=== PATIENT | female | born 1985 | race Caucasian/White ===

== ENCOUNTER 2016-08-03 11:08 | Inpatient (IN) | payer OTHER ==
--- NOTE | 2016-08-03 11:43 | ED ---
General Adult HPI - General Chief complaint: Back Pain/Injury Stated complaint: back pain-12 weeks Time Seen by Provider: 08/03/16 11:36 Source: patient, RN notes reviewed, old records reviewed Mode of arrival: ambulatory Limitations: no limitations - History of Present Illness Initial comments: This is a 30-year-old female here for evaluation. Patient is here for evaluation nausea vomiting. Patient is well 14 weeks , . Sensation is having lower back pain feels like prior kidney infections. No trauma. Patient does have a positive history of drug abuse, positive history of smoking. States pain started 2 days ago no fevers, denies recent drug abuse - Related Data Home Medications Medication Instructions Recorded Confirmed Acetaminophen Tab [Tylenol] 1,000 mg PO Q6HR PRN 06/30/16 08/03/16 Chr-Dlab-Dvpfj Acid 1 cap PO HS 08/03/16 08/03/16 [-U Capsule] Previous Rx's Medication Instructions Recorded Cephalexin [Keflex] 500 mg PO Q8HR #42 cap 08/03/16 Allergies Allergy/AdvReac Type Severity Reaction Status Date / Time amoxicillin [Amoxicillin] Allergy Rash/Hives Verified 08/03/16 13:04 Review of Systems ROS Statement: Those systems with pertinent positive or pertinent negative responses have been documented in the HPI. ROS Other: All systems not noted in ROS Statement are negative. Past Medical History Past Medical History: No Reported History Additional Past Medical History / Comment(s): Herion/Fentynal Overdose on 2015 History of Any Multi-Drug Resistant Organisms: None Reported Past Surgical History: Section Additional Past Surgical History / Comment(s): abd surgery removing a fatty tumor left upper quadrant of the abdomen Past Anesthesia/Blood Transfusion Reactions: No Reported Reaction Past Psychological History: Anxiety Smoking Status: Current every day smoker Past Alcohol Use History: Occasional Additional Past Alcohol Use History / Comment(s): Patient states that she drinks three beers monthly. Past Drug Use History: Cocaine, Heroin, IV Drug Use, Marijuana, Opiates, Prescription Drug Abuse Additional Drug Use History / Comment(s): Cocaine-- last use years ago per Pt. Herion-- IV use 2 grams daily, last use 01/29/16. MJ-- Smokes once every two weeks - Past Family History Mother Family Medical History: GERD/Reflux Father Additional Family Medical History / Comment(s): Drug abuse- herion General Exam Limitations: no limitations General appearance: alert, in no apparent distress, anxious Head exam: Present: atraumatic, normocephalic, normal inspection Eye exam: Present: normal appearance, PERRL, EOMI. Absent: scleral icterus, conjunctival injection, periorbital swelling ENT exam: Present: normal exam, mucous membranes moist Neck exam: Present: normal inspection. Absent: tenderness, meningismus, lymphadenopathy Respiratory exam: Present: normal lung sounds bilaterally. Absent: respiratory distress, wheezes, rales, rhonchi, stridor Cardiovascular Exam: Present: regular rate, normal rhythm, normal heart sounds. Absent: systolic murmur, diastolic murmur, rubs, gallop, clicks GI/Abdominal exam: Present: soft, normal bowel sounds. Absent: distended, tenderness, guarding, rebound, rigid Extremities exam: Present: normal inspection, full ROM, normal capillary refill. Absent: tenderness, pedal edema, joint swelling, calf tenderness Back exam: Present: normal inspection Neurological exam: Present: alert, oriented X3, CN II-XII intact Psychiatric exam: Present: normal affect, normal mood Skin exam: Present: warm, dry, intact, normal color. Absent: rash Course Vital Signs 08/03/16 08/03/16 11:20 12:20 Temperature 98.1 F 99.8 F H Pulse Rate 71 Respiratory 20 Rate Blood Pressure 124/71 O2 Sat by Pulse 96 Oximetry - Reevaluation(s) Reevaluation #1: 08/03/16 13:30 Recent very difficult IV start secondary to drug abuse EKG Findings - EKG Comments: EKG Findings:: EKG shows sinus tachycardia rate 109, SC 124, QRS 78, QTC 4:30 Medical Decision Making - Medical Decision Making [id number] here for evaluation of infection right flank pain. Positive UTI positive pyelonephritis, patient will be admitted for IV antibiotics secondary to . IV fluid resuscitation, urine cultures - Lab Data Result diagrams: 08/03/16 13:38 08/03/16 13:38 Lab Results 08/03/16 08/03/16 08/03/16 Range/Units 11:32 13:38 13:38 WBC 13.2 H (3.8-10.6) k/uL RBC 3.66 L (3.80-5.40) m/uL Hgb 11.2 L (11.4-16.0) gm/dL Hct 33.1 L (34.0-46.0) % MCV 90.7 (80.0-100.0) fL MCH 30.7 (25.0-35.0) pg MCHC 33.8 (31.0-37.0) g/dL RDW 12.4 (11.5-15.5) % Plt Count 242 (150-450) k/uL Neutrophils % 94 % Lymphocytes % 3 % Monocytes % 2 % Eosinophils % 1 % Basophils % 0 % Neutrophils # 12.4 H (1.3-7.7) k/uL Lymphocytes # 0.4 L (1.0-4.8) k/uL Monocytes # 0.3 (0-1.0) k/uL Eosinophils # 0.1 (0-0.7) k/uL Basophils # 0.0 (0-0.2) k/uL Sodium 135 L (137-145) mmol/L Potassium 3.6 (3.5-5.1) mmol/L Chloride 105 (98-107) mmol/L Carbon Dioxide 19 L (22-30) mmol/L Anion Gap 11 mmol/L BUN 5 L (7-17) mg/dL Creatinine 0.53 (0.52-1.04) mg/dL Est GFR (MDRD) Af Amer >60 (>60 ml/min/1.73 sqM) Est GFR (MDRD) Non-Af >60 (>60 ml/min/1.73 sqM) Glucose 134 H (74-99) mg/dL Calcium 8.6 (8.4-10.2) mg/dL Phosphorus 2.3 L (2.5-4.5) mg/dL Magnesium 1.6 (1.6-2.3) mg/dL Total Bilirubin 1.3 (0.2-1.3) mg/dL AST 22 (14-36) U/L ALT 30 (9-52) U/L Alkaline Phosphatase 48 (38-126) U/L Total Protein 6.1 L (6.3-8.2) g/dL Albumin 3.5 (3.5-5.0) g/dL Urine Color Yellow Urine Appearance Cloudy H (Clear) Urine pH 6.0 (5.0-8.0) Ur Specific [place] 1.013 (1.001-1.035) Urine Protein 1+ H (Negative) Urine Glucose (UA) Negative (Negative) Urine Ketones Negative (Negative) Urine Blood Small H (Negative) Urine Nitrate Positive H (Negative) Urine Bilirubin Negative (Negative) Urine Urobilinogen <2.0 (<2.0) mg/dL Ur Leukocyte Esterase Large H (Negative) Urine RBC 14 H (0-5) /hpf Urine WBC >182 H (0-5) /hpf Ur Squamous Epith Cells 7 H (0-4) /hpf Urine Mucus Rare H (None) /hpf Urine Opiates Screen Detected H (NotDetected) Ur Oxycodone Screen Not Detected (NotDetected) Urine Methadone Screen Not Detected (NotDetected) Ur Propoxyphene Screen Not Detected (NotDetected) Ur Barbiturates Screen Not Detected (NotDetected) U Tricyclic Antidepress Not Detected (NotDetected) Ur Phencyclidine Scrn Not Detected (NotDetected) Ur Amphetamines Screen Not Detected (NotDetected) U Methamphetamines Scrn Not Detected (NotDetected) U Benzodiazepines Scrn Not Detected (NotDetected) Urine Cocaine Screen Not Detected (NotDetected) U Marijuana (THC) Screen Not Detected (NotDetected) Disposition Clinical Impression: Pyelonephritis affecting Disposition: ADMITTED IP TO THIS HOSP Condition: Fair Prescriptions: Cephalexin [Keflex] 500 mg PO Q8HR #42 cap Referrals: Chavo Marc MD [Primary Care Provider] - 1-2 days
[2016-08-03] MEDS ORDERED: ONDANSETRON 4 MG/2 ML VIAL IVP STA ×2 (11:51→12:40)
[2016-08-03] MEDS ORDERED: SODIUM CHLORIDE 0.9% 500 ML IV STA ×2 (11:51→12:40)
[2016-08-03] MEDS ORDERED: ACETAMINOPHEN IV (For NPO) 1,000 MG in EMPTY BAG 1 BAG IVPB STA ×2 (11:51→13:56)
[2016-08-03] MEDS ORDERED: SODIUM CHLORIDE 0.9% 1,000 ML IV STA ×4 (11:51→12:40)
[2016-08-03] MEDS ORDERED: diphenhydrAMINE 50 MG/ML 1 ML VIAL IVP STA ×2 (11:52→12:40)
[2016-08-03] MEDS ORDERED: PYRIDOXINE 100 MG/ML 1 ML VIAL IVP STA ×2 (11:52→12:40)
[2016-08-03 12:21] LABS: Appearance,Urine Cloudy (Clear); Bilirubin,Urine Negative (Negative); Glucose,Urine (UA) Negative (Negative); Ketones,Urine Negative (Negative); Leukocyte Esterase,Urine Large (Negative); Mucus,Urine Rare /hpf; Nitrite,Urine Positive (Negative); Particle Count 21768; Protein,Urine 1+ (Negative); RBC,Urine 14 /hpf (0-5); Specific Gravity,Urine 1.013 (1.001-1.035); Squamous Epithelial Cell,Urine 7 /hpf (0-4); UA Billing (MACRO vs. MICRO) MICRO; Urobilinogen,Urine <2.0 mg/dL (<2.0); WBC,Urine >182 /hpf (0-5)
[2016-08-03] MEDS ORDERED: diphenhydrAMINE 50 MG CAP PO STA (12:32)
[2016-08-03] MEDS ORDERED: cefTRIAXone 250 MG VIAL IM STA (12:32)
[2016-08-03] MEDS ORDERED: PYRIDOXINE 50 MG TAB PO STA (12:32)
[2016-08-03] MEDS ORDERED: ONDANSETRON ODT 4 MG TAB PO STA (12:32)
[2016-08-03] MEDS ORDERED: PANTOPRAZOLE 40 MG/10 ML VIAL IVP STA (12:40)
[2016-08-03] MEDS ORDERED: cefTRIAXone 2,000 MG in SODIUM CHLORIDE 0.9% 100 ML IVPB STA (12:50)
[2016-08-03 13:52] LABS: Basophils % (A) 0 %; CHCM 35.4; Eosinophils # (A) 0.1 k/uL (0-0.7); Eosinophils % (A) 1 %; HCT 33.1 % (34.0-46.0); HDW 2.47; HGB 11.2 gm/dL (11.4-16.0); Luc # (Auto) 0.03; Luc % (Auto) 0; Lymphocytes # (A) 0.4 k/uL (1.0-4.8); Lymphocytes % (A) 3 %; MCH 30.7 pg (25.0-35.0); MCHC 33.8 g/dL (31.0-37.0); MCV 90.7 fL (80.0-100.0); Mean Platelet Volume 7.3; Monocytes # (A) 0.3 k/uL (0-1.0); Monocytes % (A) 2 %; Neutrophils # (A) 12.4 k/uL (1.3-7.7); Neutrophils % (A) 94 %; RBC 3.66 m/uL (3.80-5.40); RDW 12.4 % (11.5-15.5); WBC 13.2 k/uL (3.8-10.6); WBC (Perox) 13.97
[2016-08-03 14:02] LABS: ALT 30 U/L (9-52); AST 22 U/L (14-36); Alkaline Phosphatase 48 U/L (38-126); Anion Gap 11 mmol/L; Blood Urea Nitrogen 5 mg/dL (7-17); Calcium 8.6 mg/dL (8.4-10.2); Carbon Dioxide 19 mmol/L (22-30); Chloride 105 mmol/L (98-107); Glucose 134 mg/dL (74-99); Magnesium 1.6 mg/dL (1.6-2.3); Non-African American GFR(MDRD) >60 (>60 ml/min/1.73 sqM); Phosphorous 2.3 mg/dL (2.5-4.5); Potassium 3.6 mmol/L (3.5-5.1); Sodium 135 mmol/L (137-145); Total Bilirubin 1.3 mg/dL (0.2-1.3); Total Protein 6.1 g/dL (6.3-8.2)
[2016-08-03 14:14] LABS: Creatine Kinase 54 U/L (30-135)
[2016-08-03 14:23] LABS: Creatine Kinase MB <0.2 ng/mL (0.0-2.4)
[2016-08-03] MEDS ORDERED: IBUPROFEN 600 MG TAB PO PRN (16:39)
[2016-08-03] MEDS: ONDANSETRON 4 MG/2 ML VIAL IVP PRN (16:59)
[2016-08-03] MEDS: ACETAMINOPHEN IV (For NPO) 1,000 MG in EMPTY BAG 1 BAG IVPB PRN (21:00)
[2016-08-03] MEDS: PRENATAL VIT-IRON-FOLIC ACID 1 EACH CAP PO SCH (21:15)
[2016-08-03] MEDS: diphenhydrAMINE 50 MG/ML 1 ML VIAL IVP PRN ×2 (21:34→23:40)
[2016-08-04] MEDS: ONDANSETRON 4 MG/2 ML VIAL IVP PRN ×3 (03:48→17:42)
[2016-08-04] MEDS: ACETAMINOPHEN IV (For NPO) 1,000 MG in EMPTY BAG 1 BAG IVPB PRN ×2 (03:49→08:59)
--- NOTE | 2016-08-04 08:36 | US ---
EXAMINATION TYPE: US abd limited kidneys/bladder DATE OF EXAM: 08/04/2016 8:17 AM COMPARISON: NONE CLINICAL HISTORY: right flank pain . EXAM MEASUREMENTS: Liver Length: 13.7 cm Gallbladder Wall: 0.2 cm CBD: 0.5 cm Right Kidney: 12.4 x 5.2 x 5.6 cm Left Kidney: 11.3 x 5.8 x 6.2 cm Findings: * patient Pancreas: portions visualized wnl, tail partially obscured by bowel gas Liver: wnl Gallbladder: wnl CBD: wnl Right Kidney: patient has bilateral tiny echogenic foci, unsure as to whether these are stones, they don't shadow no evidence for hydronephrosis or renal mass. Left Kidney: patient has bilateral tiny echogenic foci, unsure as to whether these are stones, they don't shadow . No evidence of hydronephrosis. No renal mass. Bladder: wnl IMPRESSION: Nonshadowing echogenic foci bilaterally may reflect nonobstructing nephrolithiasis. Corre late for possible medullary sponge kidney.
--- NOTE | 2016-08-04 08:55 | HP ---
DATE OF ADMISSION: 08/03/2016 Christine Hernandez is a 30-year-old female who is 14 weeks . She had pain on in her back on the right side and previously had kidney infection when she was 19 or 20 years old. She had some chills but no clear discrete fever. When she came to the ER she was found to be febrile as well. She subsequently was admitted for further evaluation and management. PAST MEDICAL HISTORY: Positive for an heroin and fentanyl overdose in January 2016, history of abdominal surgery with a fatty tumor removed from her left upper quadrant, history of previous which was normal. History of cocaine use in the remote past, history of IV heroin use, last use 01/29/2016, history of smoking about a pack every 2 weeks. FAMILY HISTORY: Positive for gastroesophageal reflux disease in her mother. Father has a history of heroin abuse. Medications prior to admission were: 1. vitamin. 2. Acetaminophen. 3. Keflex. On physical examination, blood pressure is 98/49, respiratory rate 16, pulse rate of 95, temperature 99.7 with a T-max of 100.6. HEENT reveals pupils are equal. No jugular venous distention. Chest is clear. Cardiovascular S1 and S2. Soft except for right flank tenderness. There is no pedal edema. PATIENT IS ALLERGIC TO AMOXICILLIN. Labs reveal a white count of 13.2, hemoglobin of 11.2. Sodium 135, potassium 3.6, chloride 105, bicarb 19, BUN 5, creatinine 0.53. UA showed large leukocyte esterase with greater than 182 WBCs, nitrite positive, blood positive, urine protein positive. Urine opiate screen was positive. IMPRESSION: 1. Acute pyelonephritis on the right. 2. . 3. Opiate abuse. 4. Hyponatremia. 5. Metabolic acidosis. At this point in time, would keep the patient in the hospital, start her on Rocephin. Have ID further evaluate the patient, hydrate her aggressively with intravenous fluids, check urine cultures and blood cultures as well. Depending on how she does, we shall make further changes to her care.
[2016-08-04] MEDS: cefTRIAXone 2,000 MG in SODIUM CHLORIDE 0.9% 100 ML IVPB SCH (11:31)
[2016-08-04 12:32] VITALS: BMI 26.1
--- NOTE | 2016-08-04 13:42 | CONS ---
DATE OF CONSULTATION: 08/03/2016 REASON FOR CONSULTATION: Pyelonephritis in a patient with . HISTORY OF PRESENT ILLNESS: The patient is a 30-year-old female who is currently 14 weeks presenting to the hospital with chief complaints of nausea and vomiting. The patient's symptoms started yesterday and have intractable nausea and vomiting. The patient has been complaining of pain in her right flank area which is still 5 to 6 out of 10 and no radiation. The patient did have some burning or frequency of urine but no hematuria. The patient subsequently presented to the ER with these symptoms, the patient did spike a fever to 100.6 while down in the ER and did have an elevated white count. Because of amoxicillin allergy with a rash was started on Rocephin. I was asked to see the patient for further recommendations regarding antibiotic therapy. REVIEW OF SYSTEMS: CONSTITUTIONAL: Positive for weakness and a fever. EYES: No complaint. ENT: No complaint. RESPIRATORY: No complaint. CARDIOVASCULAR: No complaint. GENITOURINARY: As per HPI. GASTROINTESTINAL: No complaint. MUSCULOSKELETAL: No complaint. INTEGUMENTARY: No complaint. PSYCHOLOGIC: No complaint. ENDOCRINE: No complaint. NEUROLOGIC: No complaint. Past medical history significant for anxiety, urinary tract infection and history of heroin overdose. PAST SURGICAL HISTORY: . SOCIAL HISTORY: The patient is a current every day smoker and she drinks 3 beers a month. Did have history of heroin and cocaine and marijuana use. FAMILY HISTORY: Mother with history of reflux, father with history of drug use. ALLERGIES: AMOXICILLIN WITH A RASH. No history of anaphylaxis. Medications currently include the patient is currently on: 1. Tylenol. 2. Rocephin. 3. Benadryl. 4. vitamins. 5. Zofran. On examination, blood pressure is 107/55 with a pulse of 104, temperature 99, T-max is 100.6. She is 98% on room air. General description is a young female lying in bed in no distress. No tachypnea or accessory muscles of respiration use. HEENT examination shows no pallor or scleral icterus. Oral mucous membrane dry. NECK: Trachea central, no thyromegaly. LUNGS: Unlabored breathing. Clear to auscultation anteriorly. No wheeze or crackles. HEART: S1, S2 with regular rate and rhythm. ABDOMEN: Soft. She has mild right flank tenderness. No guarding, no rigidity. EXTREMITIES: No edema of feet. SKIN EXAMINATION: No rash or mass palpable. NEUROLOGICAL: The patient is awake and alert. Mood and affect normal. LABS: Hemoglobin is 11.2, white count 13.52 with a BUN of 5, creatinine 0.53. Urine has been positive. Urine drug screen positive for opiates. Urine cultures obtained, currently pending. Blood culture obtained, currently pending. DIAGNOSTIC IMPRESSION AND PLAN: 1. Patient with sepsis in a patient who did have fever of 100.6. She did have an elevated white count of 13.6 and tachycardia meeting criteria for Systemic inflammatory response syndrome like sepsis. Source is likely right-sided pyelonephritis in a patient who is currently 14 weeks . 2. Patient who did have AMOXICILLIN ALLERGIES do limit the number of antibiotics that can be safely used. PLAN: 1. Rocephin 2 gm IV piggyback to continue. 2. Obtain ultrasound of kidneys. 3. Aggressive IV fluid. 4. Follow up on the clinical condition and cultures to further adjust the medication if needed. Thank you for this consultation. We will follow this patient along with you. JES
[2016-08-04] MEDS: diphenhydrAMINE 50 MG/ML 1 ML VIAL IVP PRN ×2 (14:19→21:12)
[2016-08-04] MEDS: ACETAMINOPHEN IV (For NPO) 1,000 MG in EMPTY BAG 1 BAG IVPB SCH ×2 (14:47→20:04)
--- NOTE | 2016-08-04 15:41 | P.PN ---
Subjective 30-year-old female being seen. Patient continues to report a nausea sensation. Patient additionally reports having lower back pain. Patients being followed by infectious disease patient is 14 weeks does have a positive history of drug abuse the drug screen was positive for opiates patient remains afebrile Objective - Vital Signs Vital signs: Vital Signs Temp 98.2 F 08/04/16 15:30 Pulse 97 08/04/16 15:30 Resp 16 08/04/16 15:30 BP 95/50 08/04/16 15:30 Pulse Ox 100 08/04/16 15:30 - Exam Physical exam 30-year-old female resting in bed continues to report feeling nauseated no active emesis poor oral intake Lungs essentially clear on room air sats 100% no cough noted Heart S1-S2 audible and regular no murmur Abdomen soft nontender Extremities no edema noted - Labs CBC & Chem 7: 08/03/16 13:38 08/03/16 13:38 Assessment and Plan Plan: Impression Present on admission fever elevated white count tachycardic meet SIRS criteria sepsis suspect due to right side polynephritis Positive drug screen for opiates 14 week History of polysubstance abuse IV heroin and cocaine use last January 2016 Present on admission hyponatremia Acute polynephritis on the right Plan Await [employer] consult Continue with recommendations by infectious disease Increase IV fluid 125 an hour DVT and GI prophylaxis Further recommendations pending The above dictated assessment and findings were discussed with dr lopez . Impression and the plan of care have been dictated as directed. Sherita Tsang nurse practitioner acting as a scribe for dr lopez
[2016-08-04 17:13] LABS: Basophils # (A) 0.1 k/uL (0-0.2); Basophils % (A) 0 %; CH 32.1; CHCM 34.8; Eosinophils % (A) 0 %; HCT 30.4 % (34.0-46.0); HDW 2.49; HGB 10.2 gm/dL (11.4-16.0); Luc # (Auto) 0.08; Luc % (Auto) 1; Lymphocytes % (A) 9 %; MCH 31.1 pg (25.0-35.0); MCHC 33.6 g/dL (31.0-37.0); MCV 92.6 fL (80.0-100.0); Mean Platelet Volume 7.6; Monocytes # (A) 0.5 k/uL (0-1.0); Monocytes % (A) 5 %; Neutrophils # (A) 9.5 k/uL (1.3-7.7); Neutrophils % (A) 85 %; RBC 3.28 m/uL (3.80-5.40); RDW 12.4 % (11.5-15.5); WBC 11.2 k/uL (3.8-10.6); WBC (Perox) 11.01
[2016-08-04] MEDS: SODIUM CHLORIDE 0.9% 1,000 ML IV SCH (17:44)
[2016-08-04 18:11] LABS: Hepatitis B Surface Ag Index 0.05
[2016-08-04] MEDS: PRENATAL VIT-IRON-FOLIC ACID 1 EACH CAP PO SCH (20:04)
[2016-08-04] MEDS: PANTOPRAZOLE 40 MG/10 ML VIAL IVP SCH (20:04)
--- NOTE | 2016-08-04 21:49 | PN ---
DATE OF SERVICE: 08/04/2016 REASON FOR FOLLOWUP: Right-sided pyelonephritis. INTERVAL HISTORY: The patient is afebrile. She did have an episode of vomiting this morning. The patient denies having any significant chest pain. No cough. Still has some pain in the right flank area, though urinary symptoms have slightly improved. On examination, blood pressure is 95/50 with a pulse of 97, temperature 98.2. She is 100% on room air. General description is a young female lying in bed in no distress. RESPIRATORY SYSTEM: Unlabored breathing. Clear to auscultation anteriorly. HEART: S1, S2. Regular rate and rhythm. ABDOMEN: Soft. No tenderness. LABS: Urine with Gram-negative bacilli. The patient did have an ultrasound of the kidneys and bladder with concern about non-shadowing echogenic foci bilaterally that may reflect non-obstructing nephrolithiasis. DIAGNOSTIC IMPRESSION AND PLAN: Patient with right-sided pyelonephritis in a patient who is 14 weeks' , likely a Gram-negative pathogen. The patient currently is responding to Rocephin. That will be continued. Waiting for the urine culture to finalize to determine her discharge antibiotics. Continue supportive care.
[2016-08-05] MEDS: ACETAMINOPHEN IV (For NPO) 1,000 MG in EMPTY BAG 1 BAG IVPB SCH ×2 (00:48→06:38)
[2016-08-05] MEDS: SODIUM CHLORIDE 0.9% 1,000 ML IV SCH ×5 (00:48→20:53)
[2016-08-05 07:53] LABS: ALT 63 U/L (9-52); AST 25 U/L (14-36); Alkaline Phosphatase 69 U/L (38-126); Anion Gap 10 mmol/L; Blood Urea Nitrogen 3 mg/dL (7-17); Calcium 7.9 mg/dL (8.4-10.2); Carbon Dioxide 16 mmol/L (22-30); Chloride 115 mmol/L (98-107); Glucose 87 mg/dL (74-99); Non-African American GFR(MDRD) >60 (>60 ml/min/1.73 sqM); Potassium 3.4 mmol/L (3.5-5.1); Sodium 141 mmol/L (137-145); Total Bilirubin 0.5 mg/dL (0.2-1.3); Total Protein 5.2 g/dL (6.3-8.2)
--- NOTE | 2016-08-05 08:44 | P.OBCN ---
History of Present Illness Consult date: 08/05/16 Reason for consult: early problem Chief complaint: Right-sided flank pain, chills, fever. History of present illness: This is a 30-year-old white female 2 para 1001 LMP unknown EDC unknown with a positive test. Patient presented to the emergency room with right flank pain, temp of 99.9 and chills. Urinalysis revealed large esterase, increased WBCs, the preliminary diagnosis of right pyelonephritis was made. Patient was admitted and Rocephin was started. She was found to be and therefore a OB consult was requested. Patient has an appointment already set with the [facility] on 08/12/2016 and plans on care and delivery through that system. She denies vaginal bleeding. She states menses are very irregular, please see below. This morning she is feeling well, tolerating regular food, states that the right flank pain has resolved. Past medical history is significant for pyelonephritis age 20. Social history patient is single, she has smoked tobacco since age 19 one half pack per day. She has a heroin addiction, last used in May 2016. She was hospitalized several times last year at this institution for same. She has history of marijuana use as well. She is currently unemployed and lives in [place] with her mother. Past surgical history is significant for section per Dr. Hackett for failure to progress in 2007. Family history patient states is noncontributory. Current medications vitamins daily. ALLERGIES amoxicillin to which reports hives. Family this is a pleasant white female, 5 foot 5 inches, 156 pounds, temperature 97.9, pulse 72, blood pressure 97/56. The general physical examination is within normal limits. The chest is clear in all davis. HEENT exam is negative. Cardiac exam reveals regular rate and rhythm with no murmur click or rub. Abdomen is soft and nontender, no organosplenomegaly, uterus is does not appear to be above the pubic symphysis. Extremities reveal no edema. Impression: Positive test, patient admitted for right pyelonephritis, appears to be responding clinically. She has an appointment already set for obstetrical care at [facility] on 08/12/2016. Plan: We will obtain a pelvic ultrasound this morning to date the . labs have artery been ordered. Management of the pyelonephritis per Dr. Ospina and medical team. It is my understanding that the patient will follow- up at [facility] with her hot stick man of choice. Thank you for the consultation. Review of Systems Negative except as in HPI Past Medical History Past Medical History: No Reported History Additional Past Medical History / Comment(s): Herion/Fentynal Overdose on 2015 KIDNEY INFECTION -THIS ADMISSION AND 10 YEARS AGO WAS AT [facility] FOR 5 DAYS WITH SAME DIAGNOSIS History of Any Multi-Drug Resistant Organisms: None Reported Past Surgical History: Section Additional Past Surgical History / Comment(s): abd surgery removing a fatty tumor left upper quadrant of the abdomen Past Anesthesia/Blood Transfusion Reactions: No Reported Reaction Past Psychological History: Anxiety, Depression Additional Psychological History / Comment(s): TAKING PROZAC X 8-9 MONTHS STOPPED WHEN DISCOVERED WAS PER DR GE Smoking Status: Current every day smoker Past Alcohol Use History: Occasional Additional Past Alcohol Use History / Comment(s): DRINKING SOCIAL BUT HAS STOPPED DUE TO Past Drug Use History: Cocaine, Heroin, IV Drug Use, Marijuana, Opiates, Prescription Drug Abuse Additional Drug Use History / Comment(s): Cocaine-- last use years ago per Pt. Herion-- IV use 2 grams daily, last use 01/29/16. MJ-- Smokes once every two weeks - Past Family History Mother Family Medical History: GERD/Reflux Father Additional Family Medical History / Comment(s): Drug abuse- herion Medications and Allergies Home Medications Medication Instructions Recorded Confirmed Type Acetaminophen Tab [Tylenol] 1,000 mg PO Q6HR PRN 06/30/16 08/03/16 History Xnn-Zolz-Uyzle Acid 1 cap PO HS 08/03/16 08/03/16 History [-U Capsule] Allergies Allergy/AdvReac Type Severity Reaction Status Date / Time amoxicillin [Amoxicillin] Allergy Rash/Hives Verified 08/03/16 13:04 Exam - Vital Signs Vital signs: Vital Signs Temp Pulse Resp BP Pulse Ox 08/05/16 07:45 97.7 F 67 14 99/53 97 08/05/16 04:00 97.9 F 72 16 97/56 99 08/05/16 00:00 18 08/04/16 20:00 98.4 F 102 H 18 104/59 100 08/04/16 16:00 16 08/04/16 15:30 98.2 F 97 16 95/50 100 Intake and Output 08/04/16 08/05/16 08/05/16 22:59 06:59 14:59 Intake Total 222 Balance 222 Intake: Oral 222 Other: Voiding Method Toilet Toilet # Voids 1 1 See dictation, please Results Result Diagrams: 08/04/16 16:43 08/05/16 07:12 Abnormal Lab Results - Last 24 Hours (Table) 08/04/16 08/05/16 Range/Units 16:43 07:12 WBC 11.2 H (3.8-10.6) k/uL RBC 3.28 L (3.80-5.40) m/uL Hgb 10.2 L (11.4-16.0) gm/dL Hct 30.4 L (34.0-46.0) % Neutrophils # 9.5 H (1.3-7.7) k/uL Potassium 3.4 L (3.5-5.1) mmol/L Chloride 115 H (98-107) mmol/L Carbon Dioxide 16 L (22-30) mmol/L BUN 3 L (7-17) mg/dL Calcium 7.9 L (8.4-10.2) mg/dL ALT 63 H (9-52) U/L Total Protein 5.2 L (6.3-8.2) g/dL Albumin 2.7 L (3.5-5.0) g/dL Assessment and Plan Plan: Continue antibiotic therapy as per medical team. Upon discharge, patient will follow up with the [facility] onto [phone] as scheduled. labs have been drawn for their use, and ultrasound scheduled this morning to properly date the . Thank you for the consultation Time with Patient: Greater than 30
[2016-08-05] MEDS: PANTOPRAZOLE 40 MG/10 ML VIAL IVP SCH ×2 (09:10→20:51)
[2016-08-05] MEDS: cefTRIAXone 2,000 MG in SODIUM CHLORIDE 0.9% 100 ML IVPB SCH (09:11)
--- NOTE | 2016-08-05 11:09 | P.PN ---
Subjective 0.10-year-old female being seen on rounds. Patient is a 30-year-old white female 2 last menstrual period unknown with a positive test. Presented to the emergency room with right flank pain. The temp of 99.9 with fever chills. Urinalysis positive for UTI. Rocephin was started. [employer] MANAGEMENT MARKETING consultation was requested. Patient does have an appointment set up at [facility] at the [facility] on 08/12/2016 for care patient denied any vaginal bleeding patient's been seen by infectious disease Dr. Almanzar patient reports less nausea tolerating additionally patient reports less flank pain Objective - Vital Signs Vital signs: Vital Signs Temp 97.7 F 08/05/16 07:45 Pulse 67 08/05/16 08:00 Resp 14 08/05/16 08:00 BP 99/53 08/05/16 07:45 Pulse Ox 97 08/05/16 07:45 Intake & Output 08/04/16 08/05/16 08/05/16 18:59 06:59 18:59 Intake Total 222 Balance 222 Intake: Oral 222 Other: Voiding Method Toilet Toilet Toilet # Voids 1 - Exam Physical exam 30-year-old female standing up in [place] states tolerating a diet less nausea states flank pain is improving Lungs essentially clear adequate air movement Heart S1-S2 audible regular abdomen soft slight tenderness bilateral flank area states urinating with no difficulty states no frequent stool Extremities no edema noted - Labs CBC & Chem 7: 08/04/16 16:43 08/05/16 07:12 Labs: Abnormal Lab Results - Last 24 Hours (Table) 08/04/16 08/05/16 Range/Units 16:43 07:12 WBC 11.2 H (3.8-10.6) k/uL RBC 3.28 L (3.80-5.40) m/uL Hgb 10.2 L (11.4-16.0) gm/dL Hct 30.4 L (34.0-46.0) % Neutrophils # 9.5 H (1.3-7.7) k/uL Potassium 3.4 L (3.5-5.1) mmol/L Chloride 115 H (98-107) mmol/L Carbon Dioxide 16 L (22-30) mmol/L BUN 3 L (7-17) mg/dL Calcium 7.9 L (8.4-10.2) mg/dL ALT 63 H (9-52) U/L Total Protein 5.2 L (6.3-8.2) g/dL Albumin 2.7 L (3.5-5.0) g/dL Assessment and Plan Plan: Impression Present on admission fever elevated white count tachycardic meet SIRS criteria sepsis suspect due to right side polynephritis Positive drug screen for opiates 14 week History of polysubstance abuse IV heroin and cocaine use last January 2016 Present on admission hyponatremia resolved Acute pyelonephritis on the right Hypokalemic Plan Potassium to be replaced Repeat labs in the morning possible discharge in the next 24 hours Continue with recommendations by infectious disease Increase IV fluid 125 an hour DVT and GI prophylaxis Further recommendations pending [employer]NA[employer]'s recommendations noted appreciated and reviewed The above dictated assessment and findings were discussed with dr lopez . Impression and the plan of care have been dictated as directed. Sherita Tsang nurse practitioner acting as a scribe for dr lopez
[2016-08-05] MEDS: POTASSIUM CHLORIDE ER 20 MEQ TAB.ER PO SCH ×2 (11:33→14:19)
[2016-08-05] MEDS: ACETAMINOPHEN TAB 325 MG TAB PO PRN ×2 (12:27→19:08)
--- NOTE | 2016-08-05 13:21 | PN ---
DATE OF SERVICE: 08/05/2016 Reason for followup is right-sided pyelonephritis in a female. INTERVAL HISTORY: The patient is afebrile. She is feeling better. The right flank pain has slightly improved. No nausea or vomiting. She has been tolerating a regular diet. No diarrhea. On examination, blood pressure 99/53 with a pulse of 67, temperature 97.7. She is 97% on room air. General description is a young female, lying in bed in no distress. RESPIRATORY SYSTEM: Unlabored breathing. Clear to auscultation anteriorly. HEART: S1, S2. Regular rate and rhythm. Right flank pain has resolved. LABS: BUN of 3, creatinine 0.53. White count of 11.2 as of yesterday and not repeated today. Urine cultures currently pending. DIAGNOSTIC IMPRESSION AND PLAN: Patient with an Escherichia coli urinary tract infection with likely right-sided pyelonephritis. The patient has overall clinical improvement, responded to Rocephin that will be continued. Awaiting for the culture to finalize to determine discharge antibiotics. Continue supportive care.
--- NOTE | 2016-08-05 16:25 | US ---
EXAMINATION TYPE: US OB <= 14 wk fetus DATE OF EXAM: 08/05/2016 8:46 AM COMPARISON: NONE CLINICAL HISTORY: date of . unknown LMP, irregular menses, EXAM PERFORMED: Transabdominal (TA) EXAM MEASUREMENTS: GESTATIONAL AGE / DATING Dates by LMP: unknown Dates by Current Scan: (11 weeks/5 days) EDC: 02/19/2017 MATERNAL ANATOMY Uterus: 14.0 x 9.6 x 5.9 cm Right Ovary: 2.7 x 2.2 x 2.3 cm Left Ovary: 3.7 x 3.0 x 2.5 cm Post CDS / Adnexa: no free fluid Presence of free fluid: no Presence of corpus luteal cyst: no Presence of subchorionic bleed: no GESTATION / SURVEY CRL: 4.9 (11 weeks/5 days) MSD: not measured Yolk Sac (normal less than 6mm): 5.2 mm Heart Rate: 160 bpm Rhythm: Normal IUP: Viable IUP Nuchal Translucency 10-14wks (normal less than 3mm): 0.9mm Date of LMP: unknown Beta HcG (if available): not available TECHNOLOGIST IMPRESSION: Live single IUP measuring 11 weeks 5 days IMPRESSION: Single intrauterine gestation estimated at 11 weeks 5 days gestation. Fetus has a cardiac heart rate measuring 160 bpm.
[2016-08-05] MEDS: PRENATAL VIT-IRON-FOLIC ACID 1 EACH CAP PO SCH (20:52)
[2016-08-05] MEDS: diphenhydrAMINE 50 MG/ML 1 ML VIAL IVP PRN (21:52)
[2016-08-06 00:16] VITALS: RESP 19
[2016-08-06] MEDS: ACETAMINOPHEN TAB 325 MG TAB PO PRN ×2 (02:18→08:32)
[2016-08-06 07:06] LABS: HIV-1/HIV-2 Ab Screen NONREAC (NON REAC)
[2016-08-06 08:11] VITALS: BP 120/59; PULSE 88; TEMP 98
[2016-08-06] MEDS: SODIUM CHLORIDE 0.9% 1,000 ML IV SCH (08:29)
[2016-08-06] MEDS ORDERED: PANTOPRAZOLE 40 MG TABLET PO SCH (09:00)
[2016-08-06 09:11] LABS: ALT 47 U/L (9-52); AST 22 U/L (14-36); Alkaline Phosphatase 83 U/L (38-126); Anion Gap 12 mmol/L; Blood Urea Nitrogen 3 mg/dL (7-17); Calcium 8.5 mg/dL (8.4-10.2); Carbon Dioxide 17 mmol/L (22-30); Chloride 113 mmol/L (98-107); Glucose 91 mg/dL (74-99); Non-African American GFR(MDRD) >60 (>60 ml/min/1.73 sqM); Potassium 3.8 mmol/L (3.5-5.1); Sodium 142 mmol/L (137-145); Total Bilirubin 0.6 mg/dL (0.2-1.3); Total Protein 5.8 g/dL (6.3-8.2)
--- NOTE | 2016-08-06 11:13 | P.DS ---
Providers Date of admission: 08/04/16 14:51 Expected date of discharge: 08/06/16 Attending physician: Chavo Marc Consults: 08/04/16 14:53 Consult Physician Routine Consulting Provider: Fabienne Diaz Consult Reason/Comments: pyelo Do you want consulting provider notified?: Yes Primary care physician: Chavo Marc [facility] Course: This is a 30-year-old white female 2 para 1001 LMP unknown EDC unknown with a positive test. Patient presented to the emergency room with right flank pain, temp of 99.9 and chills. Urinalysis revealed large esterase, increased WBCs, the preliminary diagnosis of right pyelonephritis was made. Patient was admitted and Rocephin was started. She was found to be and therefore a OB consult was requested. Patient has an appointment already set with the [facility] on 08/12/2016 and plans on care and delivery through that system. She denies vaginal bleeding. She states menses are very irregular, . Patient does have a history of heroin addiction last used in May 2016 DOCK WORKER ordered a ultrasound gestation 11 weeks 5 days expected date of delivery 02/19/2017 Patient was seen by infectious disease Dr. Almanzar. Patient was treated for E. coli in the urinary tract likely right side pyelonephritis Patient was started on IV Rocephin. When the culture was finalized antibiotics orally were initiated Keflex as directed Patients clinical status continued to improve and on the day of discharge the right flank pain had resolved patient was afebrile urinating without difficulty and tolerating a diet Impression Present on admission fever elevated white count tachycardic meet SIRS criteria sepsis suspect due to urinary tract infection likely right side polynephritis Positive drug screen for opiates 14 week History of polysubstance abuse IV heroin and cocaine use last January 2016 Present on admission hyponatremia resolved Acute pyelonephritis on the right Hypokalemic Ultrasound shows gestation 11 weeks 5 days with expected date of delivery 02/19/2017 The above dictated assessment and findings were discussed with dr marc . Impression and the plan of care have been dictated as directed. Sherita Tsang nurse practitioner acting as a scribe for dr marc Patient Condition at Discharge: Fair Plan - Discharge Summary New Discharge Prescriptions: Cephalexin [Keflex] 500 mg PO Q8HR #42 cap Discharge Medication List Acetaminophen Tab [Tylenol] 1,000 mg PO Q6HR PRN 06/30/16 [History] [id number] Acid [-U Capsule] 1 cap PO HS 08/03/16 [History] Cephalexin [Keflex] 500 mg PO Q8HR #42 cap 08/06/16 [Rx] Follow up Appointment(s)/Referral(s): Chavo Marc MD [Primary Care Provider] - 3 Days Activity/Diet/Wound Care/Special Instructions: Keep scheduled appointment for DOCK WORKER as directed for care Discharge Disposition: HOME SELF-CARE
--- NOTE | 2016-08-06 12:45 | PN ---
DATE OF SERVICE: 08/06/2016 Reason for followup is E. coli, right-sided pyelonephritis. INTERVAL HISTORY: The patient is afebrile. She is breathing comfortably. Pain to the right flank area has improved. No nausea, no vomiting. Denies any abdominal pain and no diarrhea. On examination, blood pressure is 120/59 with a pulse of 88, temperature 98. She is 99% on room air. General description is a young female up in the bed in no distress. RESPIRATORY SYSTEM: Unlabored breathing. Clear to auscultation anteriorly. HEART: S1, S2, regular rate and rhythm. ABDOMEN: Soft. No right flank tenderness. LABS: BUN of 3, creatinine 0.53, CBC was not done. Blood culture negative. Urine with an E. coli. DIAGNOSTIC IMPRESSION AND PLAN: Patient with Escherichia coli and right-sided pyelonephritis. The patient has seen overall improvement on Rocephin. She has been switched over to Keflex. This should be okay as organism is sensitive and low risk of terotigensity in this lady. She will be finishing a total of 2 weeks of antibiotic include the day she received here for underlying pyelonephritis. Continue supportive care. MTDD
== END 2016-08-06 13:09 | disposition home or self-care (01) | DRG 781 ==
LOC: EC 11:08 → OBSVTOIN 14:02 → 3OBS 14:02 → INTOOBSV 08-04 14:51 → OBSVTOIN 08-04 14:51 → 3OBS 08-05 09:30 → 4MS4W 08-05 09:30 → UNDODISIN 08-06 13:09
PROVIDERS: ADMIT Family Medicine; ATTEND Family Medicine
DX: O98.811 Other maternal infectious and parasitic diseases complicating pregnancy, first trimester (principal); E87.2 Acidosis; E87.1 Hypo-osmolality and hyponatremia; O23.01 Infections of kidney in pregnancy, first trimester; O99.321 Drug use complicating pregnancy, first trimester; O99.281 Endocrine, nutritional and metabolic diseases complicating pregnancy, first trimester; O99.331 Smoking (tobacco) complicating pregnancy, first trimester; O99.341 Other mental disorders complicating pregnancy, first trimester; Z3A.11 11 weeks gestation of pregnancy; B96.20 Unspecified Escherichia coli [E. coli] as the cause of diseases classified elsewhere; F11.10 Opioid abuse, uncomplicated; F17.200 Nicotine dependence, unspecified, uncomplicated; F32.9 Major depressive disorder, single episode, unspecified; F41.9 Anxiety disorder, unspecified; E87.6 Hypokalemia; Z87.440 Personal history of urinary (tract) infections; Z87.898 Personal history of other specified conditions; Z91.5 Personal history of self-harm; Z79.899 Other long term (current) drug therapy
CPT/HCPCS: 36415; 76705; 76770; 76801; 76813; 80053; 80306; 81001; 82550; 82553; 83605; 83735; 84100; 85025; 86762; 86850; 86900; 86901; 87040; 87077; 87086; 87186; 87340; 87389; 87491; 87591; 93005; 96361; 96365; 96375; 96376; 99285

== ENCOUNTER 2017-08-21 15:23 | Emergency (ER) | payer OTHER ==
[2017-08-21] MEDS ORDERED: SODIUM CHLORIDE 0.9% 1,000 ML IV ONE (17:33)
[2017-08-21] MEDS ORDERED: ACETAMINOPHEN TAB 325 MG TAB PO STA (17:33)
[2017-08-21 17:41] LABS: Basophils # (A) 0.1 k/uL (0-0.2); Basophils % (A) 0 %; Eosinophils # (A) 0.3 k/uL (0-0.7); Eosinophils % (A) 3 %; HGB 13.8 gm/dL (11.4-16.0); Lymphocytes % (A) 18 %; MCH 30.9 pg (25.0-35.0); MCHC 32.9 g/dL (31.0-37.0); MCV 93.7 fL (80.0-100.0); Mean Platelet Volume 6.6; Monocytes # (A) 0.3 k/uL (0-1.0); Monocytes % (A) 3 %; Neutrophils # (A) 8.5 k/uL (1.3-7.7); Neutrophils % (A) 76 %; Platelet Count 349 k/uL (150-450); RBC 4.48 m/uL (3.80-5.40); RDW 11.8 % (11.5-15.5); WBC 11.3 k/uL (3.8-10.6)
--- NOTE | 2017-08-21 17:45 | ED ---
Female Urogenital HPI - General Chief complaint: Vaginal Bleeding Stated complaint: , Vaginal Bleeding Time Seen by Provider: 08/21/17 17:15 Source: patient Mode of arrival: ambulatory Limitations: no limitations - History of Present Illness Initial comments: 31-year-old female patient presents to the emergency department today for evaluation of vaginal bleeding and lower back pain. Patient states that she did have positive urine test at home. States that 3 days ago she started to have spotting. States that the spotting continued over the next couple of days however today she developed low back pain as well. Patient states she is unsure how far along she is. States that her last period was at the beginning of May but it was home health administrator only lasted a couple of days. She states that she has had irregular periods in the past so this is not unusual. Patient is a . Patient states that she only notices the blood when she uses the restroom. She denies any hematuria, dysuria, urinary frequency, urinary urgency. She denies any flank pain. She denies any passage of clots or tissue-like substances. She denies any abnormal vaginal discharge leading up to this. Denies any concern for STIs. Patient denies any recent rash, fever, chills, shortness breath, chest pain, abdominal pain, nausea, vomiting, diarrhea , constipation, numbness, tingling, dizziness, weakness, hematuria, dysuria, urinary urgency, urinary frequency, headache, visual changes, or any other complaints. Last Menstrual Period: 05/13/17 - Related Data Previous Rx's Medication Instructions Recorded Cephalexin [Keflex] 500 mg PO Q6H #28 cap 08/21/17 Allergies Allergy/AdvReac Type Severity Reaction Status Date / Time amoxicillin [Amoxicillin] Allergy Rash/Hives Verified 08/21/17 17:16 Review of Systems ROS Statement: Those systems with pertinent positive or pertinent negative responses have been documented in the HPI. ROS Other: All systems not noted in ROS Statement are negative. Past Medical History Past Medical History: No Reported History Additional Past Medical History / Comment(s): Herion/Fentynal Overdose on 2015, previous IVDA abuse. KIDNEY INFECTION -THIS ADMISSION AND [address] [facility] FOR 5 DAYS WITH SAME DIAGNOSIS History of Any Multi-Drug Resistant Organisms: None Reported Past Surgical History: Section Additional Past Surgical History / Comment(s): abd surgery removing a fatty tumor left upper quadrant of the abdomen Past Anesthesia/Blood Transfusion Reactions: No Reported Reaction Past Psychological History: Anxiety, Depression Smoking Status: Current every day smoker Past Alcohol Use History: None Reported Past Drug Use History: None Reported - Past Family History Mother Family Medical History: GERD/Reflux Father Additional Family Medical History / Comment(s): Drug abuse- herion General Exam Limitations: no limitations General appearance: alert, in no apparent distress, other (Physical well- developed, well-nourished adult female patient in no acute distress. Vital signs upon presentation are temperature 98.2F, pulse 69, respirations 18, blood pressure 124/83, pulse ox 98% on room air.) Eye exam: Present: normal appearance, PERRL, EOMI. Absent: scleral icterus, conjunctival injection, periorbital swelling ENT exam: Present: normal exam, normal oropharynx, mucous membranes moist Respiratory exam: Present: normal lung sounds bilaterally. Absent: respiratory distress, wheezes, rales, rhonchi, stridor Cardiovascular Exam: Present: regular rate, normal rhythm, normal heart sounds. Absent: systolic murmur, diastolic murmur, rubs, gallop, clicks GI/Abdominal exam: Present: soft, normal bowel sounds. Absent: distended, tenderness, guarding, rebound, rigid External exam: Present: normal external exam Speculum exam: Present: vaginal bleeding, other (Cervix is closed, Small clots) . Absent: normal speculum exam By manual exam: Present: normal by manual exam Back exam: Absent: CVA tenderness (R), CVA tenderness (L) Neurological exam: Present: alert, oriented X3, CN II-XII intact Psychiatric exam: Present: normal affect, normal mood Skin exam: Present: warm, dry, intact, normal color. Absent: rash Course Vital Signs 08/21/17 08/21/17 15:47 17:56 Temperature 98.2 F Pulse Rate 69 84 Respiratory 18 18 Rate Blood Pressure 124/83 110/57 O2 Sat by Pulse 98 100 Oximetry Medical Decision Making - Medical Decision Making 31-year-old female patient presented to the emergency department today for complaints of vaginal bleeding and low back pain. Patient did have positive test at home. Labs reviewed and showed a white blood cell count of 11.3, neutrophil count of 8.5, serum hCG 127.4, blood type is A+, urinalysis showed a turbid appearance with 2+ protein, large blood, large leukocyte esterase, 43 red blood cells, greater than 182 white blood cells, many white blood cell clumps, 18 squamous epithelial cells, many bacteria, occasional mucus , many budding yeast. Ultrasound was obtained, at this time there is no intrauterine seen, no adnexal mass, or free fluid. I did discuss findings and results with the patient and informed her this could be early versus threatened miscarriage. She is going be treated with Keflex for urinary tract infection. She'll be given a prescription for repeat hCG test in 3 days. She is instructed to follow-up with her TAG PRESS OPERATOR as soon as possible. She verbalizes understanding and agrees with this plan. - Lab Data Result diagrams: 08/21/17 17:31 08/21/17 17:31 Lab Results 08/21/17 08/21/17 08/21/17 Range/Units 17:31 17:31 17:31 WBC 11.3 H (3.8-10.6) k/uL RBC 4.48 (3.80-5.40) m/uL Hgb 13.8 (11.4-16.0) gm/dL Hct 42.0 (34.0-46.0) % MCV 93.7 (80.0-100.0) fL MCH 30.9 (25.0-35.0) pg MCHC 32.9 (31.0-37.0) g/dL RDW 11.8 (11.5-15.5) % Plt Count 349 (150-450) k/uL Neutrophils % 76 % Lymphocytes % 18 % Monocytes % 3 % Eosinophils % 3 % Basophils % 0 % Neutrophils # 8.5 H (1.3-7.7) k/uL Lymphocytes # 2.0 (1.0-4.8) k/uL Monocytes # 0.3 (0-1.0) k/uL Eosinophils # 0.3 (0-0.7) k/uL Basophils # 0.1 (0-0.2) k/uL Sodium 143 (137-145) mmol/L Potassium 3.9 (3.5-5.1) mmol/L Chloride 107 (98-107) mmol/L Carbon Dioxide 25 (22-30) mmol/L Anion Gap 11 mmol/L BUN 5 L (7-17) mg/dL Creatinine 0.70 (0.52-1.04) mg/dL Est GFR (MDRD) Af Amer >60 (>60 ml/min/1.73 sqM) Est GFR (MDRD) Non-Af >60 (>60 ml/min/1.73 sqM) Glucose 111 H (74-99) mg/dL Calcium 9.8 (8.4-10.2) mg/dL Total Bilirubin 0.8 (0.2-1.3) mg/dL AST 15 (14-36) U/L ALT 20 (9-52) U/L Alkaline Phosphatase 65 (38-126) U/L Total Protein 7.5 (6.3-8.2) g/dL Albumin 4.7 (3.5-5.0) g/dL HCG, Quant 127.4 mIU/mL Urine Color Urine Appearance (Clear) Urine pH (5.0-8.0) Ur Specific [place] (1.001-1.035) Urine Protein (Negative) Urine Glucose (UA) (Negative) Urine Ketones (Negative) Urine Blood (Negative) Urine Nitrite (Negative) Urine Bilirubin (Negative) Urine Urobilinogen (<2.0) mg/dL Ur Leukocyte Esterase (Negative) Urine RBC (0-5) /hpf Urine WBC (0-5) /hpf Urine WBC Clumps (None) /hpf Ur Squamous Epith Cells (0-4) /hpf Urine Bacteria (None) /hpf Urine Mucus (None) /hpf Urine Yeast (Budding) (None) /hpf Blood Type A Positive Blood Type Recheck No 08/21/17 Range/Units 18:36 WBC (3.8-10.6) k/uL RBC (3.80-5.40) m/uL Hgb (11.4-16.0) gm/dL Hct (34.0-46.0) % MCV (80.0-100.0) fL MCH (25.0-35.0) pg MCHC (31.0-37.0) g/dL RDW (11.5-15.5) % Plt Count (150-450) k/uL Neutrophils % % Lymphocytes % % Monocytes % % Eosinophils % % Basophils % % Neutrophils # (1.3-7.7) k/uL Lymphocytes # (1.0-4.8) k/uL Monocytes # (0-1.0) k/uL Eosinophils # (0-0.7) k/uL Basophils # (0-0.2) k/uL Sodium (137-145) mmol/L Potassium (3.5-5.1) mmol/L Chloride (98-107) mmol/L Carbon Dioxide (22-30) mmol/L Anion Gap mmol/L BUN (7-17) mg/dL Creatinine (0.52-1.04) mg/dL Est GFR (MDRD) Af Amer (>60 ml/min/1.73 sqM) Est GFR (MDRD) Non-Af (>60 ml/min/1.73 sqM) Glucose (74-99) mg/dL Calcium (8.4-10.2) mg/dL Total Bilirubin (0.2-1.3) mg/dL AST (14-36) U/L ALT (9-52) U/L Alkaline Phosphatase (38-126) U/L Total Protein (6.3-8.2) g/dL Albumin (3.5-5.0) g/dL HCG, Quant mIU/mL Urine Color Red Urine Appearance Turbid H (Clear) Urine pH 6.5 (5.0-8.0) Ur Specific [place] 1.007 (1.001-1.035) Urine Protein 2+ H (Negative) Urine Glucose (UA) Negative (Negative) Urine Ketones Negative (Negative) Urine Blood Large H (Negative) Urine Nitrite Negative (Negative) Urine Bilirubin Negative (Negative) Urine Urobilinogen <2.0 (<2.0) mg/dL Ur Leukocyte Esterase Large H (Negative) Urine RBC 43 H (0-5) /hpf Urine WBC >182 H (0-5) /hpf Urine WBC Clumps Many H (None) /hpf Ur Squamous Epith Cells 18 H (0-4) /hpf Urine Bacteria Many H (None) /hpf Urine Mucus Occasional H (None) /hpf Urine Yeast (Budding) Many H (None) /hpf Blood Type Blood Type Recheck - Radiology Data Radiology results: report reviewed, image reviewed Pelvic ultrasound was obtained, report was reviewed in its entirety, there is no intrauterine seen at this time. Impression by Dr. Christie shows uterus is empty. No adnexal mass or free fluid. Normal endometrium. Disposition Clinical Impression: Threatened miscarriage, Vaginal bleeding affecting early , Urinary tract infection Disposition: HOME SELF-CARE Condition: Good Instructions: Threatened Miscarriage (ED), First Trimester Vaginal Bleed (ED), Urinary Tract Infection in (ED) Additional Instructions: Return for repeat hormone level in 3 days. Follow-up with TAG PRESS OPERATOR as soon as possible. Return here immediately for any new, worsening, or concerning symptoms. Prescriptions: Cephalexin [Keflex] 500 mg PO Q6H #28 cap Referrals: Chavo Marc MD [Primary Care Provider] - 1-2 days Time of Disposition: 19:15
[2017-08-21 17:57] LABS: ALT 20 U/L (9-52); AST 15 U/L (14-36); Albumin 4.7 g/dL (3.5-5.0); Alkaline Phosphatase 65 U/L (38-126); Anion Gap 11 mmol/L; Blood Urea Nitrogen 5 mg/dL (7-17); Calcium 9.8 mg/dL (8.4-10.2); Carbon Dioxide 25 mmol/L (22-30); Chloride 107 mmol/L (98-107); Glucose 111 mg/dL (74-99); Potassium 3.9 mmol/L (3.5-5.1); Sodium 143 mmol/L (137-145); Total Bilirubin 0.8 mg/dL (0.2-1.3); Total Protein 7.5 g/dL (6.3-8.2)
[2017-08-21 18:13] LABS: HCG,Quantitative Serum 127.4 mIU/mL
--- NOTE | 2017-08-21 18:31 | US ---
EXAMINATION TYPE: US OB <= 14 wk fetus DATE OF EXAM: 08/21/2017 COMPARISON: NONE CLINICAL HISTORY: Pain. EXAM PERFORMED: Transabdominal (TA) EXAM MEASUREMENTS: GESTATIONAL AGE / DATING Physician Established: Not yet established Dates by LMP: LMP unknown Dates by First Scan: No previous this is first scan ( Dates by Current Scan for: No IUP seen at this time MATERNAL ANATOMY Uterus: 11.6 x 4.8 x 6.0cm Endometrium: 0.5cm Right Ovary: 3.1 x 2.5 x 2.8cm Left Ovary: 3.2 x 2.0 x 2.1cm Post CDS / Adnexa: wnl Presence of free fluid: no GESTATION / SURVEY IUP: No IUP seen at this time Date of LMP: unknown Beta HcG (if available): 127 IMPRESSION: The uterus is empty. No adnexal mass or free fluid. Normal endometrium.
[2017-08-21 18:44] LABS: Appearance,Urine Turbid (Clear); Bacteria,Urine Many /hpf; Bilirubin,Urine Negative (Negative); Blood,Urine Large (Negative); Budding Yeast,Urine Many /hpf; Color,Urine Red; Glucose,Urine (UA) Negative (Negative); Ketones,Urine Negative (Negative); Leukocyte Esterase,Urine Large (Negative); Mucus,Urine Occasional /hpf; Nitrite,Urine Negative (Negative); PH, Urine 6.5 (5.0-8.0); Protein,Urine 2+ (Negative); RBC,Urine 43 /hpf (0-5); Specific Gravity,Urine 1.007 (1.001-1.035); Squamous Epithelial Cell,Urine 18 /hpf (0-4); Urobilinogen,Urine <2.0 mg/dL (<2.0); WBC,Urine >182 /hpf (0-5)
[2017-08-21 20:05] VITALS: BP 119/67; PULSE 83; RESP 20; TEMP 98.4
== END 2017-08-21 20:11 | disposition home or self-care (01) ==
LOC: EC 15:23
DX: O20.0 Threatened abortion (principal); O23.42 Unspecified infection of urinary tract in pregnancy, second trimester; O99.332 Smoking (tobacco) complicating pregnancy, second trimester; F17.200 Nicotine dependence, unspecified, uncomplicated; Z3A.15 15 weeks gestation of pregnancy; Z88.0 Allergy status to penicillin
CPT/HCPCS: 36415; 76801; 80053; 81001; 84702; 85025; 86900; 86901; 96360; 99284

== ENCOUNTER → 2017-08-24 | Outpatient (CLI) | payer SELFPAY | END | disposition home or self-care (01) | LOC: LABWHC1 12:26 | PROVIDERS: ATTEND Obstetrics & Gynecology | DX: O20.8 Other hemorrhage in early pregnancy (principal); Z3A.00 Weeks of gestation of pregnancy not specified | CPT/HCPCS: 36415; 84702 ==

== ENCOUNTER 2017-10-08 18:16 | Emergency (ER) | payer OTHER ==
[2017-10-08 18:21] VITALS: BP 135/79; PULSE 110; RESP 18; TEMP 98.5
--- NOTE | 2017-10-08 19:50 | ED ---
General Adult HPI - General Chief complaint: Nausea/Vomiting/Diarrhea Stated complaint: Poss Flu Time Seen by Provider: 10/08/17 19:32 Source: patient Mode of arrival: ambulatory Limitations: no limitations - History of Present Illness Initial comments: 32-year-old female presenting for evaluation of URI symptoms and associated nausea and vomiting. She states that 4 days ago her daughter was diagnosed with influenza and has been coughing and touching on her mother during this entire time. The mother did her best to prevent her getting ill however yesterday she started running high fevers, and developed myalgias, arthralgias, diaphoresis and was eventually nausea and vomiting. She denies any associated abdominal pain and further states that she doesn't have any cough , dysuria, vaginal bleeding or discharge, diarrhea, constipation. She states the Motrin for symptoms with only minimal relief. Nothing is really making her symptoms worse and she states that she is so fatigued she is not able to get up and move out of bed. - Related Data Home Medications Medication Instructions Recorded Confirmed Acetaminophen [Tylenol] 650 mg PO Q4H PRN 10/08/17 10/08/17 Allergies Allergy/AdvReac Type Severity Reaction Status Date / Time amoxicillin [Amoxicillin] Allergy Rash/Hives Verified 10/08/17 19:51 Review of Systems ROS Statement: Those systems with pertinent positive or pertinent negative responses have been documented in the HPI. ROS Other: All systems not noted in ROS Statement are negative. Constitutional: Reports: fever, chills Eyes: Denies: eye pain, vision change ENT: Denies: ear pain, throat pain, congestion Respiratory: Denies: cough, dyspnea, wheezes Cardiovascular: Denies: chest pain, dyspnea on exertion, syncope Endocrine: Reports: fatigue. Denies: polydipsia, polyuria Gastrointestinal: Reports: nausea, vomiting. Denies: abdominal pain, diarrhea, constipation Genitourinary: Denies: urgency, dysuria Musculoskeletal: Reports: arthralgia, myalgia. Denies: back pain Skin: Denies: rash, lesions Neurological: Denies: headache, weakness Psychiatric: Denies: anxiety, depression Hematological/Lymphatic: Denies: easy bleeding, easy bruising Past Medical History Past Medical History: No Reported History Additional Past Medical History / Comment(s): Herion/Fentynal Overdose on 2015, previous IVDA abuse. KIDNEY INFECTION -THIS ADMISSION AND 10 YEARS AGO WAS AT [facility] FOR 5 DAYS WITH SAME DIAGNOSIS History of Any Multi-Drug Resistant Organisms: None Reported Past Surgical History: Section Additional Past Surgical History / Comment(s): abd surgery removing a fatty tumor left upper quadrant of the abdomen Past Anesthesia/Blood Transfusion Reactions: No Reported Reaction Past Psychological History: Anxiety, Depression Smoking Status: Current every day smoker Past Alcohol Use History: None Reported Past Drug Use History: None Reported - Past Family History Mother Family Medical History: GERD/Reflux Father Additional Family Medical History / Comment(s): Drug abuse- herion General Exam Limitations: no limitations General appearance: alert, in no apparent distress Head exam: Present: atraumatic, normocephalic Eye exam: Present: normal appearance, PERRL, EOMI. Absent: scleral icterus, conjunctival injection ENT exam: Present: normal exam, normal oropharynx Neck exam: Present: normal inspection. Absent: tenderness, meningismus, full ROM, lymphadenopathy Respiratory exam: Present: normal lung sounds bilaterally. Absent: respiratory distress, wheezes, rales, rhonchi, stridor Cardiovascular Exam: Present: normal rhythm, tachycardia GI/Abdominal exam: Present: soft. Absent: distended, tenderness, guarding, rebound, rigid Rectal exam: Present: deferred Extremities exam: Present: normal inspection, full ROM Back exam: Present: normal inspection, full ROM Neurological exam: Present: alert, oriented X3, normal gait Psychiatric exam: Present: normal affect, normal mood Skin exam: Present: warm, dry, intact Course Vital Signs 10/08/17 18:18 Temperature 98.5 F Pulse Rate 110 H Respiratory 18 Rate Blood Pressure 135/79 O2 Sat by Pulse 95 Oximetry Medical Decision Making - Medical Decision Making 32-year-old female presented for evaluation of URI symptoms following influenza exposure from her daughter. On physical exam she appears to be in no apparent distress however she is mildly tachycardic on her vital signs. Lungs are clear to auscultation bilaterally, heart tones reveal tachycardia without murmurs rubs or gallops. Skin reveals no rashes or other lesions. Given her exposure and her clinical presentation the patient likely has influenza and will be discharged with that diagnosis. She was offered the Tamiflu prescription as she is within the timeframe however she states due to the cost, side effects, and question efficacy she would prefer not to be given a prescription. She was advised follow-up with primary care physician and to take Motrin 800 which she are he has a home as prescribed. Further given return instructions. The patient acknowledged an understanding of all information provided and agreed with this plan of care. Disposition Clinical Impression: Influenza Disposition: HOME SELF-CARE Condition: Stable Instructions: Influenza (ED) Referrals: Chavo Marc MD [Primary Care Provider] - 1-2 days Time of Disposition: 19:50
== END 2017-10-08 20:04 | disposition home or self-care (01) ==
LOC: EC 18:16
DX: J11.1 Influenza due to unidentified influenza virus with other respiratory manifestations (principal); R00.0 Tachycardia, unspecified; F17.200 Nicotine dependence, unspecified, uncomplicated; M25.50 Pain in unspecified joint; Z88.0 Allergy status to penicillin
CPT/HCPCS: 99283

== ENCOUNTER → 2018-08-13 | Outpatient (CLI) | payer OTHER ==
--- NOTE | 2018-08-13 15:53 | US ---
EXAMINATION TYPE: US OB >= 14 wk fetus DATE OF EXAM: 08/13/2018 COMPARISON: None CLINICAL HISTORY: Z34.80 Confirm dates TECHNIQUE: Transabdominal (TA) GESTATIONAL AGE / DATING Physician Established: Not yet established Dates by LMP: (18 weeks/4 days) EDC: 01/10/2019 Dates by First Scan: No previous this is first scan ( Dates by Current Scan: (17 weeks/6 days) EDC: 01/15/2019 SURVEY IUP: Single PLACENTA: Anterior PREVIA: No Previa SHINE: 14.6 cm Normal CERVICAL LENGTH (transabdominal: norm > 3.0cm): 3.0 cm BIOMETRY PRESENTATION: Breech LIE: Longitudinal BPD: 3.9 cm 17 weeks / 6 days HC: 14.2 cm 17 weeks / 4 days AC: 13.2 cm 18 weeks / 5 days FL: 2.5 cm 17 weeks / 3 days ESTIMATED WEIGHT IN GRAMS: 221.2 grams ESTIMATED WEIGHT IN LBS/OZ: 0 lbs. 8 oz. WEIGHT PERCENTAGE BASED ON ESTABLISHED DATES: 18% HC/AC: 1.08 Normal FL/AC: 18.7 Normal HEART RATE: 151 bpm RHYTHM: Normal Live IUP with an GRUPO of 01/15/2019 by this exam IMPRESSION: Single live intrauterine with a calculated sonographic age of 17 weeks and 6 days, overall concordant with menstrual age. Heart rate is within normal limits at 151 bpm. Breech presentation at this time.
== END ==
LOC: RADUSWWP 15:03
PROVIDERS: ATTEND Obstetrics & Gynecology
DX: O32.1XX0 Maternal care for breech presentation, not applicable or unspecified (principal); Z3A.17 17 weeks gestation of pregnancy
CPT/HCPCS: 76805

== ENCOUNTER → 2018-10-26 | Outpatient (CLI) | payer OTHER ==
--- NOTE | 2018-10-26 08:55 | US ---
EXAMINATION TYPE: US OB anatomy transabd DATE OF EXAM: 10/26/2018 COMPARISON: US 2019 HISTORY: Z34.90 Normal encounter for Anatomy TECHNIQUE: Transabdominal (TA) EXAM MEASUREMENTS: GESTATIONAL AGE / DATING Physician Established: (29 weeks/1 days) EDC: 01/10/2019 Dates by LMP: (29 weeks/1 days) EDC: 01/10/2019 Dates by First Scan: (28 weeks/3 days) EDC: 01/15/2019 Dates by Current Scan for: (28 weeks/3 days) EDC: 01/15/2019 SURVEY IUP: Single PLACENTA: Anterior PREVIA: No previa SHINE: 18.2 cm Normal CERVICAL LENGTH (transabdominal: norm > 3.0cm): 4.7 cm BIOMETRY PRESENTATION: Vertex LIE: Longitudinal BPD: 6.8 cm 27 weeks / 3 days HC: 25.5 cm 27 weeks / 5 days AC: 25.4 cm 29 weeks / 5 days FL: 5.4 cm 28 weeks / 5 days ESTIMATED WEIGHT IN GRAMS: 1304 grams ESTIMATED WEIGHT IN LBS/OZ: 2 lbs. 14 oz. WEIGHT PERCENTAGE BASED ON ESTABLISHED DATE: 29 % HC/AC: 1.00 Normal FL/AC: 21% Normal HEART RATE: 130 bpm RHYTHM: Normal ANATOMY SEEN (within normal limits): * Lateral Vent (< 1 cm) 0.9 cm * Cisterna Magna (< 1.1 cm) 0.7 cm * Cerebellum (varies with age) 3.0 cm Choroid Plexus (bilateral) Midline Falx Cavus Septi Pellucidi Four Chamber Heart Outflow tracts: LVOT/RVOT Stomach Situs Nose / Lips Diaphragm Kidneys (bilateral) Bladder Cord Insert Three Vessel Cord Longitudinal Spine Transverse Spine Arms (bilateral) Legs (bilateral) ANATOMY NOT SEEN: * Nuchal Fold (< 0.6 cm) : not done due to age IMPRESSION: Viable single IUP measuring 28 weeks 3 days with a heart rate of 130bpm and an estimated delivery edward e of 01/15/2019.
== END | disposition home or self-care (01) ==
LOC: RADUSWWP 07:37
PROVIDERS: ATTEND Obstetrics & Gynecology
DX: Z34.90 Encounter for supervision of normal pregnancy, unspecified, unspecified trimester (principal); Z3A.28 28 weeks gestation of pregnancy
CPT/HCPCS: 76811

== ENCOUNTER → 2018-12-17 | Outpatient (CLI) | payer OTHER ==
--- NOTE | 2018-12-17 10:24 | US ---
EXAMINATION TYPE: US OB >= 14 wk fetus DATE OF EXAM: 12/17/2018 COMPARISON: 10/26/2018 CLINICAL HISTORY: Z34.90 normal encounter for TECHNIQUE: Transabdominal (TA) GESTATIONAL AGE / DATING Physician Established: (35 weeks/ 6 days) EDC: 01/15/19 Dates by LMP: (35 weeks/6 days) EDC: 01/15/19 Dates by First Scan: (35 weeks/6 days) EDC: 01/15/19 Dates by Current Scan: (34 weeks/5 days) EDC: 01/23/19 SURVEY IUP: Single PLACENTA: Anterior PREVIA: No Previa SHINE: 10.2 cm CERVICAL LENGTH (transabdominal: norm > 3.0cm): 4.6 cm BIOMETRY PRESENTATION: Vertex BPD: 8.5 cm 34 weeks / 3 days HC: 31.1 cm 34 weeks / 5 days AC: 32.0 cm 35 weeks / 6 days FL: 6.9 cm 35 weeks / 3 days ESTIMATED WEIGHT IN GRAMS: 2684 grams ESTIMATED WEIGHT IN LBS/OZ: 5 lbs. 15 oz. WEIGHT PERCENTAGE BASED ON ESTABLISHED DATES: 39% HC/AC: 1.0 FL/AC: 21.6 HEART RATE: 159 bpm RHYTHM: Normal IMPRESSION: Single live intrauterine with a sonographic age of 34 weeks and 5 days and estimated date o f delivery of 01/23/2019 is slightly discordant with the physician established dates. Weight percentag e based on established dates of 39%. An anechoic fluid index is noted to be within normal limits at 1 0.2 cm as is the heart rate of 159 bpm. Cervical length is also within normal limits at 4.6 cm.
== END | disposition home or self-care (01) ==
LOC: RADUSWWP 09:30
PROVIDERS: ATTEND Obstetrics & Gynecology
DX: Z34.93 Encounter for supervision of normal pregnancy, unspecified, third trimester (principal); Z3A.34 34 weeks gestation of pregnancy
CPT/HCPCS: 76805

== ENCOUNTER 2019-05-18 17:21 | Emergency (ER) | payer OTHER ==
[2019-05-18] MEDS ORDERED: LIDOCAINE 1% INJ 10MG/ML (20 ML MDV) SQ ONE (17:53)
[2019-05-18] MEDS ORDERED: ACET/COD 300 MG/30 MG STARTER PACK 6 TAB BTL PO STA (18:51)
--- NOTE | 2019-05-18 18:58 | ED ---
Skin/Abscess/FB HPI - General Chief complaint: Skin/Abscess/Foreign Body Stated complaint: Female /abscess Time Seen by Provider: 05/18/19 17:53 Source: patient Mode of arrival: ambulatory Limitations: no limitations - History of Present Illness Initial comments: 33-year-old female presenting for possible abscess. Patient states that about 4 days ago she noticed some discomfort in the left mid area of the vagina superior to the clitoris on the labia majora. Patient states she presented yesterday to [facility] where she was put on Bactrim and told to follow-up with her [employer]. Patient did have an [employer] scheduled appointment for tomorrow however it was canceled. She states that it is very uncomfortable when she walks and presented [facility] for possible drainage. Patient denies fever or flulike symptoms. Vaginal discharge or concern for sexually transmitted diseases. Patient denies experiencing this before. Remaining review system negative. Upon arrival patient appears well no signs of acute distress. - Related Data Home Medications Medication Instructions Recorded Confirmed Acetaminophen [Tylenol] 650 mg PO Q4H PRN 10/08/17 10/08/17 Previous Rx's Medication Instructions Recorded Acyclovir 400 mg PO TID 7 Days #21 tablet 05/18/19 Allergies Allergy/AdvReac Type Severity Reaction Status Date / Time amoxicillin [Amoxicillin] Allergy Rash/Hives Verified 05/18/19 17:46 Review of Systems ROS Statement: Those systems with pertinent positive or pertinent negative responses have been documented in the HPI. ROS Other: All systems not noted in ROS Statement are negative. Past Medical History Past Medical History: No Reported History Additional Past Medical History / Comment(s): Herion/Fentynal Overdose on 01/31/2016, previous IVDA abuse. KIDNEY INFECTION -THIS ADMISSION AND 10 YEARS AGO WAS AT [facility] FOR 5 DAYS WITH SAME DIAGNOSIS History of Any Multi-Drug Resistant Organisms: None Reported Past Surgical History: Section Additional Past Surgical History / Comment(s): abd surgery removing a fatty tumor left upper quadrant of the abdomen Past Anesthesia/Blood Transfusion Reactions: No Reported Reaction Past Psychological History: Anxiety, Depression Smoking Status: Current every day smoker Past Alcohol Use History: Occasional Past Drug Use History: None Reported - Past Family History Mother Family Medical History: GERD/Reflux Father Additional Family Medical History / Comment(s): Drug abuse- herion General Exam - General Exam Comments Initial Comments: General: The patient is awake and alert, in no distress, and does not appear acutely ill. Eye: +3 mm pupils are equal, round and reactive to light, extra-ocular movements are intact. No nystagmus. There is normal conjunctiva bilaterally. No signs of icterus. Ears, nose, mouth and throat: There are moist mucous membranes and no oral lesions. Gastrointestinal: Soft, non-distended, non-tender abdomen without masses or organomegaly noted. There is no rebound or guarding present. No vaginal discharge, odors. no lesions of the #R 16 area. There is evidence of 4 34 circular indurated area with mild erythema there is a small ulceration at its center. Very tender to palpation. Shaved pubic hair. No other lesions noted. No lymphadenopathy appreciated of the groin bilaterally. Musculoskeletal: Normal ROM, no tenderness. Strength 5/5. Sensation intact. Pulses equal bilaterally 2+. Neurological: A&O x 3. CN II-XII intact grossly, There are no obvious motor or sensory deficits. Coordination appears grossly intact. Speech is normal. Skin: Skin is warm and dry and no rashes or lesions are noted. Psychiatric: Cooperative, appropriate mood & affect, normal judgment. Limitations: no limitations Course Vital Signs 05/18/19 05/18/19 05/18/19 17:42 18:09 19:09 Temperature 98.1 F 97.9 F Pulse Rate 95 94 89 Respiratory 18 20 20 Rate Blood Pressure 123/71 114/71 113/73 O2 Sat by Pulse 99 98 98 Oximetry 05/18/19 19:37 Temperature 98 F Pulse Rate 80 Respiratory 18 Rate Blood Pressure 123/83 O2 Sat by Pulse 97 Oximetry Medical Decision Making - Medical Decision Making 33-year-old female presenting for evaluation of possible abscess. There is no areas of fluctuance. Only induration. There was an area of ulceration. Tested for HSV. Although the appearance is more consistent with folliculitis such as furuncle. Patient is on Bactrim currently she is instructed to continue this medication given a cycle B are pending HSV swabs. There is no evidence of skin gland inflammation or Bartholin's gland abscess. Patient appears well and nontoxic. There is no evidence of surrounding cellulitis. At this time advised warm compresses and [employer] follow-up. Return for worse or discussed patient is agreeable and she was discharged. Disposition Clinical Impression: Furuncle, Lesion of labia Disposition: HOME SELF-CARE Condition: Good Instructions (If sedation given, give patient instructions): Furunculosis and Carbunculosis (ED) Additional Instructions: Please use medication as discussed. Please follow-up with OBGYN in next week, continue antibiotics. Please return to emergency room if the symptoms increase or worsen or for any other concerns. Prescriptions: Acyclovir 400 mg PO TID 7 Days #21 tablet Is patient prescribed a controlled substance at d/c from ED?: No Referrals: None,Stated [Primary Care Provider] - 1-2 days Time of Disposition: 18:51
[2019-05-18 19:38] VITALS: BP 123/83; PULSE 80; RESP 18; TEMP 98
== END 2019-05-18 19:54 | disposition home or self-care (01) ==
LOC: EC 17:21
DX: L02.92 Furuncle, unspecified (principal); N90.89 Other specified noninflammatory disorders of vulva and perineum; F17.200 Nicotine dependence, unspecified, uncomplicated; Z88.0 Allergy status to penicillin
CPT/HCPCS: 87529; 99283; 96372; J2001

== ENCOUNTER → 2020-07-30 | Outpatient (CLI) | payer OTHER ==
[2020-07-30 15:39] LABS: Basophils # (A) 0.1 k/uL (0-0.2); Basophils % (A) 1 %; Eosinophils # (A) 0.4 k/uL (0-0.7); Eosinophils % (A) 5 %; HCT 39.5 % (34.0-46.0); Lymphocytes # (A) 2.7 k/uL (1.0-4.8); Lymphocytes % (A) 32 %; MCH 30.7 pg (25.0-35.0); MCHC 32.8 g/dL (31.0-37.0); MCV 93.6 fL (80.0-100.0); Mean Platelet Volume 7.1; Monocytes # (A) 0.4 k/uL (0-1.0); Monocytes % (A) 5 %; Neutrophils # (A) 4.7 k/uL (1.3-7.7); Neutrophils % (A) 56 %; Platelet Count 287 k/uL (150-450); RBC 4.22 m/uL (3.80-5.40); RDW 12.2 % (11.5-15.5); WBC 8.4 k/uL (3.8-10.6)
[2020-07-30 16:34] LABS: Erythrocyte Sedimentation Rate 7 mm/hr (0-20)
[2020-07-31 02:16] LABS: C Reactive Protein 0.4 mg/dL (0.0-0.8); Uric Acid 4.2 mg/dL (2.9-7.7)
== END | disposition home or self-care (01) ==
LOC: LABWHC1 14:13
PROVIDERS: ATTEND Orthopaedic Surgery
DX: M25.50 Pain in unspecified joint (principal)
CPT/HCPCS: 36415; 84550; 85025; 85652; 86038; 86140; 86431; 86812

== ENCOUNTER → 2020-08-02 | Outpatient (CLI) | payer OTHER ==
--- NOTE | 2020-08-05 17:15 | MR ---
EXAMINATION TYPE: MR hand RT wo con DATE OF EXAM: 08/02/2020 COMPARISON: Outside radiograph 07/11/2020 HISTORY: 34-year-old female M79.644 Small Bump on 2 of her fingers, swells up at times, right Middle finger pain TECHNIQUE: Multiplanar, multisequence images of the right hand were obtained without IV contrast. FINDINGS: There is a palpable marker placed along the palmar aspect of the third and fifth digits. Underlying the palpable marker is located in the subcutaneous adipose just deep to the skin are nodul ar lesions showing T2 intermediate to low signal and T1 low signal. The underlying flexor tendon and tendon sheath appears uninvolved. The underlying osseous structures are uninvolved. In the fifth digit, it is located at the level of the PIP joint and measures 6 mm wide by 9 mm long b y 3 mm thick. In the third digit, this is located at the level of the middle phalangeal shaft measuring 10 mm wide by 13 mm long by 6 cm thick. No surrounding soft tissue edema is identified. Scattered mild tenosynovial fluid along the lesser tendons likely physiologic. No suspicious bone marrow replacement marginal erosions, or marrow edema is identified. IMPRESSION: A discrete soft tissue nodule underlying the palpable marker along the palmar aspect of the middle fi nger and little finger. These are located just deep to the skin within the subcutaneous adipose layer and do not involve the underlying osseous structures or tendon/tendon sheath. The exact etiology is unclear. Consider surgical excision.
== END | disposition home or self-care (01) ==
LOC: RADMRIMAIN 11:43
PROVIDERS: ATTEND Orthopaedic Surgery
DX: R22.31 Localized swelling, mass and lump, right upper limb (principal)

== ENCOUNTER 2020-09-27 20:45 | Emergency (ER) | payer OTHER ==
[2020-09-27 21:41] VITALS: BP 121/81; PULSE 77; RESP 18; TEMP 98.3
--- NOTE | 2020-09-27 22:03 | ED ---
Nausea/Vomiting/Diarrhea HPI - General Chief complaint: Nausea/Vomiting/Diarrhea Stated complaint: Diarrhea, Headache Time Seen by Provider: 09/27/20 21:42 Source: patient Mode of arrival: ambulatory Limitations: no limitations - History of Present Illness Initial comments: This patient is a 35-year-old woman presents with constellation of symptoms that include congestion, headache, diarrhea all going on now for the second day. Patient was concerned because of possibility of coronavirus MD complaint: diarrhea, other Onset/Timin -: days(s) (Chest congestion) Description of Diarrhea: water Associated Abdominal Pain: No Severity scale (1-10): 0 Consistency: constant Improves with: none Worsens with: none - Related Data Home Medications Medication Instructions Recorded Confirmed Acetaminophen [Tylenol] 650 mg PO Q4H PRN 10/08/17 10/08/17 Previous Rx's Medication Instructions Recorded Acyclovir 400 mg PO TID 7 Days #21 tablet 05/18/19 Allergies Allergy/AdvReac Type Severity Reaction Status Date / Time amoxicillin [Amoxicillin] Allergy Rash/Hives Verified 09/27/20 21:42 Review of Systems ROS Statement: Those systems with pertinent positive or pertinent negative responses have been documented in the HPI. ROS Other: All systems not noted in ROS Statement are negative. Constitutional: Denies: fever, chills ENT: Reports: congestion Respiratory: Reports: cough. Denies: dyspnea Cardiovascular: Denies: chest pain, palpitations, edema Endocrine: Reports: fatigue Gastrointestinal: Reports: diarrhea. Denies: abdominal pain, nausea, vomiting Genitourinary: Denies: dysuria, hematuria Musculoskeletal: Denies: back pain Skin: Denies: rash Neurological: Denies: headache, weakness, numbness Past Medical History Past Medical History: No Reported History Additional Past Medical History / Comment(s): Herion/Fentynal Overdose on 01/31/2016, previous IVDA abuse. KIDNEY INFECTION -THIS ADMISSION AND 10 YEARS AGO WAS AT [facility] FOR 5 DAYS WITH SAME DIAGNOSIS History of Any Multi-Drug Resistant Organisms: None Reported Past Surgical History: Section Additional Past Surgical History / Comment(s): abd surgery removing a fatty tumor left upper quadrant of the abdomen Past Anesthesia/Blood Transfusion Reactions: No Reported Reaction Past Psychological History: Anxiety, Depression Smoking Status: Current every day smoker Past Alcohol Use History: Occasional Past Drug Use History: None Reported - Past Family History Mother Family Medical History: GERD/Reflux Father Additional Family Medical History / Comment(s): Drug abuse- herion General Exam Limitations: no limitations General appearance: alert, in no apparent distress Head exam: Present: atraumatic, normocephalic Eye exam: Present: normal appearance. Absent: scleral icterus, conjunctival injection ENT exam: Present: normal oropharynx Neck exam: Present: normal inspection Respiratory exam: Present: normal lung sounds bilaterally. Absent: respiratory distress, wheezes, rales, rhonchi, stridor Cardiovascular Exam: Present: regular rate, normal rhythm, normal heart sounds. Absent: systolic murmur, diastolic murmur, rubs, gallop GI/Abdominal exam: Present: soft. Absent: distended, tenderness, guarding, rebound, rigid, mass, pulsatile mass, hernia Extremities exam: Present: normal inspection, normal capillary refill, other (Patient's surgical incisions are clean dry and intact with no evidence of superinfection). Absent: pedal edema, calf tenderness Back exam: Present: normal inspection Neurological exam: Present: alert Skin exam: Present: warm, dry, intact, normal color. Absent: rash Course Vital Signs 09/27/20 21:36 Temperature 98.3 F Pulse Rate 77 Respiratory 18 Rate Blood Pressure 121/81 O2 Sat by Pulse 100 Oximetry Medical Decision Making - Medical Decision Making Patient had coronavirus testing and then desired to go home. I called with the results that was positive. Patient counseled in isolation and self-care. All questions answered. - Lab Data Lab Results 09/27/20 Range/Units 22:09 Coronavirus (PCR) Detected A (Not Detectd) Disposition Clinical Impression: Viral syndrome, COVID-19 Disposition: HOME SELF-CARE Condition: Good Instructions (If sedation given, give patient instructions): Acute Diarrhea (ED), Viral Syndrome (ED) Is patient prescribed a controlled substance at d/c from ED?: No Referrals: None,Stated [Primary Care Provider] - 1-2 days
== END 2020-09-27 22:10 | disposition home or self-care (01) ==
LOC: EC 20:45
DX: U07.1 COVID-19 (principal); B34.9 Viral infection, unspecified; F32.9 Major depressive disorder, single episode, unspecified; F17.200 Nicotine dependence, unspecified, uncomplicated
CPT/HCPCS: 87635; 99284

== ENCOUNTER → 2020-10-18 | Outpatient (CLI) | payer OTHER ==
[2020-10-18 19:02] LABS: HGB 12.5 g/dL (12.0-15.0); MCH 30.7 pg (27.0-32.0); MCHC 32.1 g/dL (32.0-37.0); MCV 95.8 fL (80.0-97.0); Platelet Count 363 X 10*3/uL (140-440); RBC 4.07 X 10*6/uL (4.10-5.20); RDW 11.9 % (11.5-14.5); WBC 7.24 X 10*3/uL (4.50-10.00)
[2020-10-18 20:07] LABS: Erythrocyte Sedimentation Rate 8 mm/Hr (0-20)
[2020-10-18 21:49] LABS: C Reactive Protein <0.4 mg/dL (0.0-0.8); Rheumatoid Factor, Qnt 5 IU/mL (0-15); Uric Acid 4.7 mg/dL (2.9-7.7)
[2020-10-19 11:04] LABS: HLA B27 NEGATIVE
== END | disposition home or self-care (01) ==
LOC: LABWHC1 11:59
PROVIDERS: ATTEND Orthopaedic Surgery Hand Surgery
DX: M25.539 Pain in unspecified wrist (principal); M79.89 Other specified soft tissue disorders
CPT/HCPCS: 36415; 84550; 85027; 85652; 86038; 86140; 86431; 86812